=== PATIENT | male | born 1960 | race Caucasian/White ===

== ENCOUNTER → 2016-12-01 | Day surgery (SDC) | payer BC ==
[~2016-12-01] MED LIST: BUPIVACAINE HCL PF 0.75% 30 ML VIAL ONE; EPINEPHrine HCL (1:1000) 30 MG/30 ML VIAL ONE; LACTATED RINGER'S 1000 ML INJ 1,000 ML ONE; LIDOCAINE 1.5%/EPINEPHrine 1:200,000 PF SOLN 30 ML AMP NERV BLOCK ONE; MIDAZOLAM HCL 5 MG/ML VIAL (1 ML) ONE; PROPOFOL 200 MG/20 ML AMP IV ONE; ceFAZolin 2 GM PREMIX 50 ML ONE
--- NOTE | 2016-12-02 13:28 | MP ---
cc: CLAUDIA EDGE M.D. DATE OF SURGERY 12/01/2016 PREOPERATIVE DIAGNOSIS Left shoulder rotator cuff tear and impingement syndrome. POSTOPERATIVE DIAGNOSIS Left shoulder rotator cuff tear and impingement syndrome. PROCEDURE 1. Left shoulder arthroscopic rotator cuff repair 2. Left shoulder arthroscopic subacromial decompression including anterior acromionectomy ANESTHESIA Interscalene block and general SURGEON Claudia Edge MD FILTER FILLER SURGEON [facility] [place] ESTIMATED BLOOD LOSS Minimum DRAINS None SPECIMEN None COMPLICATIONS None known. INDICATION Claudia Gonzalez is a 56-year-old male with chronic left shoulder pain and functional weakness and inability to participate in recreational activities of softball and having chronic pain associated the shoulder. Workup with MRI scan reveals a significant tear and conservative measures our failing and therefore he is offered surgical intervention. The risks and benefits are thoroughly discussed. A detailed informed consent was obtained. The drafter assistant is an advanced registered nurse practitioner and his skill set was medically necessary for the performance of the operation. PROCEDURE The patient is given an interscalene block in the preop holding area. He was brought in the operating room and he was placed under a general anesthetic. He is turned into the lateral decubitus position left shoulder up. The left shoulder is prepped and draped in the usual sterile fashion. IV antibiotics were given. Time-out was completed. We used three portal technique, one posterior in the soft spot, one laterally at the junction of the middle and the anterior one-third of the lateral border of the acromion and one off of the anterior aspect of the acromion. A posterior portal was made and a blunt trocar was used. We noted some small particulate debris within the shoulder. We noted significant synovitis about the shoulder as well as significant erythema at the base of the biceps tendon. Looking upward, we saw a small full-thickness rotator cuff tear. We brought the shaver in through the rotator cuff tear and we suctioned out the joint and then we photographed the articular surface, the humeral head and glenoid and posterior labrum which appeared normal and then we photographed the synovitis at the superior labrum and base of the biceps and we photographed the rotator cuff tear looking from underneath then we brought the shaver in and we cleaned out very soft, cotton-like tissue which was frayed tissue on the undersurface of the rotator cuff tear involving the supraspinatus and infraspinatus and we shaved to the footprint at the articular margin involving the entire footprint of the supraspinatus and into the infraspinatus. We then came into the subacromial space and performed a partial bursectomy and photographed the cuff tear from this angle and then we visualized the anterior acromial spur and proceeded with the anterior acromionectomy and to fine-tuned this, we brought the scope in through a lateral portal and smoothed and removed the anterior acromial spur and a portion of the anterior acromial ligament and electrocautery was used. Then we look directly down at the repaired rotator cuff site and we photographed this and we had good quality tissue now and proceeded with two Bio[employer] suture anchors at the articular margin of the rotator cuff insertion site and these anchors by about a centimeter to a centimeter and a half and then additionally we used a free #2 FiberWire suture in the infraspinatus portion of the repair to repair that to the posterior anchor and we did the typical speed bridge crisscross technique and placed our two lateral anchors in which appeared to anatomically repair the rotator cuff at the footprint. We took the arm through a range of motion and did not see any residual impingement and we had very good hemostasis and bursal tissue had been removed and we had very good hemostasis. The arthroscopic instrumentation was removed and then we close with absorbable sutures. Steri-Strips applied. Sterile dressing applied. The patient was awoken and returned to the recovery room in stable condition. MD FOZIA Padilla/MARGOT /10:38 AM /1:17 PM
== END | disposition home or self-care (01) ==
LOC: ESDC 06:56
PROVIDERS: ATTEND Orthopaedic Surgery Sports Medicine
DX: M75.122 Complete rotator cuff tear or rupture of left shoulder, not specified as traumatic (principal); M75.42 Impingement syndrome of left shoulder
CPT/HCPCS: 01630; 01991; 29826; 29827; 64417; C1713; J0171; J0690; J2250; J7120